=== PATIENT | female | born 1995 | race Caucasian/White ===

== ENCOUNTER 2016-03-08 20:28 | Emergency (ER) | payer OTHER ==
[2016-03-08 20:59] VITALS: TEMP 98.2
[2016-03-08] MEDS ORDERED: PANTOPRAZOLE 40 MG/10 ML VIAL IVP STA (21:45)
[2016-03-08] MEDS ORDERED: SODIUM CHLORIDE 0.9% 1,000 ML IV STA ×2 (21:45)
[2016-03-08] MEDS ORDERED: ONDANSETRON 4 MG/2 ML VIAL IVP STA (21:45)
[2016-03-08] MEDS ORDERED: SODIUM CHLORIDE 0.9% 500 ML IV STA (21:45)
[2016-03-08] MEDS ORDERED: MORPHINE SULFATE 4 MG/ML SYRINGE IV STA (21:45)
[2016-03-08] MEDS ORDERED: DICYCLOMINE 10 MG/ML 2 ML AMP IM STA (21:45)
[2016-03-08 21:55] LABS: Basophils # (A) 0.2 k/uL (0-0.2); Basophils % (A) 1 %; CH 24.7; CHCM 32.8; Eosinophils # (A) 0.1 k/uL (0-0.7); Eosinophils % (A) 1 %; HCT 39.5 % (34.0-46.0); HDW 2.69; HGB 12.7 gm/dL (11.4-16.0); Luc # (Auto) 0.25; Luc % (Auto) 2; Lymphocytes % (A) 21 %; MCH 24.2 pg (25.0-35.0); MCHC 32.1 g/dL (31.0-37.0); MCV 75.4 fL (80.0-100.0); Mean Platelet Volume 7.3; Microcytosis Slight; Monocytes # (A) 0.6 k/uL (0-1.0); Monocytes % (A) 4 %; Neutrophils # (A) 10.5 k/uL (1.3-7.7); Neutrophils % (A) 72 %; RBC 5.23 m/uL (3.80-5.40); RDW 15.1 % (11.5-15.5); WBC 14.7 k/uL (4.0-11.0); WBC (Perox) 14.82
[2016-03-08 21:59] LABS: Amorphous Sediment,Urine Rare /hpf; Appearance,Urine Clear (Clear); Bacteria,Urine Rare /hpf; Bilirubin,Urine Negative (Negative); Glucose,Urine (UA) Negative (Negative); Ketones,Urine Trace (Negative); Leukocyte Esterase,Urine Large (Negative); Mucus,Urine Few /hpf; Nitrite,Urine Negative (Negative); PH, Urine 6.5 (5.0-8.0); Particle Count 7987; Protein,Urine Negative (Negative); RBC,Urine 1 /hpf (0-5); Specific Gravity,Urine 1.022 (1.001-1.035); Squamous Epithelial Cell,Urine 3 /hpf (0-4); UA Billing (MACRO vs. MICRO) MICRO; Urobilinogen,Urine <2.0 mg/dL (<2.0); WBC,Urine 21 /hpf (0-5)
[2016-03-08 22:04] LABS: ALT 28 U/L (9-52); AST 24 U/L (14-36); Alkaline Phosphatase 83 U/L (38-126); Amylase 54 U/L (30-110); Anion Gap 13 mmol/L; Blood Urea Nitrogen 11 mg/dL (7-17); Calcium 9.5 mg/dL (8.4-10.2); Carbon Dioxide 23 mmol/L (22-30); Chloride 104 mmol/L (98-107); Glucose 94 mg/dL (74-99); Non-African American GFR(MDRD) >60 (>60 ml/min/1.73 sqM); Potassium 4.5 mmol/L (3.5-5.1); Sodium 140 mmol/L (137-145); Total Bilirubin 0.6 mg/dL (0.2-1.3); Total Protein 8.1 g/dL (6.3-8.2)
--- NOTE | 2016-03-08 22:11 | XR ---
EXAMINATION TYPE: XR KUB DATE OF EXAM: 03/08/2016 10:05 PM COMPARISON: NONE HISTORY: Abdominal pain TECHNIQUE: 2 views FINDINGS: Bowel gas pattern is normal. There is no sign of intestinal obstruction or pneumoperitoneum . Fecal pattern is normal. There is no sign of a mass. There are no pathologic calcifications over th e kidneys. Bony structures are intact. Lung bases are clear. IMPRESSION: Nonacute abdomen.
--- NOTE | 2016-03-08 22:31 | ED ---
General Adult HPI - General Chief complaint: Abdominal Pain Stated complaint: Poss crohns flare-up Time Seen by Provider: 03/08/16 21:13 Source: patient, RN notes reviewed, old records reviewed Mode of arrival: ambulatory - History of Present Illness Initial comments: This is a 20-year-old female here for evaluation. This patient presents here today for evaluation of abdominal pain nausea and vomiting. She has mild discomfort with urination. No diarrhea no blood in her stool. No blood in her vomit. She has had scrawled, she is on Remicade. Patient states she's had multiple CAT scans with positive for ileitis. Patient states the symptoms all velazquez same. Pain started today and has been consistent. - Related Data Home Medications Medication Instructions Recorded Confirmed Gianvi ( Control) 1 tab PO DAILY 03/08/16 03/08/16 HYDROcodone/APAP 5-325MG [[place] 1 tab PO Q4HR PRN 03/08/16 03/08/16 5-325] Previous Rx's Medication Instructions Recorded HYDROcodone/APAP 5-325MG [[place] 1 tab PO Q4HR PRN #30 tab 03/08/16 5-325] Nitrofurantoin Monohyd/M-Cryst 100 mg PO Q12HR #10 cap 03/08/16 [Macrobid] Ondansetron [Zofran] 4 mg PO Q8HR PRN #30 tab 03/08/16 Allergies Allergy/AdvReac Type Severity Reaction Status Date / Time codeine AdvReac Anaphylaxis Verified 03/08/16 21:51 Penicillins AdvReac Rash/Hives Verified 03/08/16 21:51 Review of Systems ROS Statement: Those systems with pertinent positive or pertinent negative responses have been documented in the HPI. ROS Other: All systems not noted in ROS Statement are negative. Past Medical History Additional Past Medical History / Comment(s): anemia, crohn's History of Any Multi-Drug Resistant Organisms: None Reported Past Surgical History: No Surgical Hx Reported Additional Past Surgical History / Comment(s): crohn's disease Past Psychological History: No Psychological Hx Reported Smoking Status: Never smoker Past Alcohol Use History: None Reported Past Drug Use History: None Reported General Exam General appearance: alert, in no apparent distress Head exam: Present: atraumatic, normocephalic, normal inspection Eye exam: Present: normal appearance, PERRL, EOMI. Absent: scleral icterus, conjunctival injection, periorbital swelling ENT exam: Present: normal exam, mucous membranes moist Neck exam: Present: normal inspection. Absent: tenderness, meningismus, lymphadenopathy Respiratory exam: Present: normal lung sounds bilaterally. Absent: respiratory distress, wheezes, rales, rhonchi, stridor Cardiovascular Exam: Present: regular rate, normal rhythm, normal heart sounds. Absent: systolic murmur, diastolic murmur, rubs, gallop, clicks GI/Abdominal exam: Present: soft, normal bowel sounds. Absent: distended, tenderness, guarding, rebound, rigid Extremities exam: Present: normal inspection, full ROM, normal capillary refill. Absent: tenderness, pedal edema, joint swelling, calf tenderness Back exam: Present: normal inspection Neurological exam: Present: alert, oriented X3, CN II-XII intact Psychiatric exam: Present: normal affect, normal mood Skin exam: Present: warm, dry, intact, normal color. Absent: rash Course Vital Signs 03/08/16 20:56 Temperature 98.2 F Pulse Rate 88 Respiratory 18 Rate Blood Pressure 119/75 O2 Sat by Pulse 98 Oximetry - Reevaluation(s) Reevaluation #1: 03/08/16 22:31 Medical record of prior CAT scans reviewed Reevaluation #2: 03/08/16 23:51 Patient's symptoms at this time are improved Medical Decision Making - Medical Decision Making 20 female here with history of Crohn's disease coming in with urinary tract infection, flareup of Crohn disease with abdominal pain, symptoms this time are improved, we'll start antibiotics and discharged home - Lab Data Result diagrams: 03/08/16 21:40 03/08/16 21:40 Lab Results 03/08/16 03/08/16 03/08/16 Range/Units 21:40 21:40 21:40 WBC 14.7 H (4.0-11.0) k/uL RBC 5.23 (3.80-5.40) m/uL Hgb 12.7 (11.4-16.0) gm/dL Hct 39.5 (34.0-46.0) % MCV 75.4 L (80.0-100.0) fL MCH 24.2 L (25.0-35.0) pg MCHC 32.1 (31.0-37.0) g/dL RDW 15.1 (11.5-15.5) % Plt Count 313 (150-450) k/uL Neutrophils % 72 % Lymphocytes % 21 % Monocytes % 4 % Eosinophils % 1 % Basophils % 1 % Neutrophils # 10.5 H (1.3-7.7) k/uL Lymphocytes # 3.0 (1.0-4.8) k/uL Monocytes # 0.6 (0-1.0) k/uL Eosinophils # 0.1 (0-0.7) k/uL Basophils # 0.2 (0-0.2) k/uL Microcytosis Slight Sodium 140 (137-145) mmol/L Potassium 4.5 (3.5-5.1) mmol/L Chloride 104 (98-107) mmol/L Carbon Dioxide 23 (22-30) mmol/L Anion Gap 13 mmol/L BUN 11 (7-17) mg/dL Creatinine 0.61 (0.52-1.04) mg/dL Est GFR (MDRD) Af Amer >60 (>60 ml/min/1.73 sqM) Est GFR (MDRD) Non-Af >60 (>60 ml/min/1.73 sqM) Glucose 94 (74-99) mg/dL Plasma Lactic Acid Jamshid (0.7-2.0) mmol/L Calcium 9.5 (8.4-10.2) mg/dL Total Bilirubin 0.6 (0.2-1.3) mg/dL AST 24 (14-36) U/L ALT 28 (9-52) U/L Alkaline Phosphatase 83 (38-126) U/L Total Protein 8.1 (6.3-8.2) g/dL Albumin 4.4 (3.5-5.0) g/dL Amylase 54 (30-110) U/L Lipase 116 (23-300) U/L Urine Color Yellow Urine Appearance Clear (Clear) Urine pH 6.5 (5.0-8.0) Ur Specific [place] 1.022 (1.001-1.035) Urine Protein Negative (Negative) Urine Glucose (UA) Negative (Negative) Urine Ketones Trace H (Negative) Urine Blood Negative (Negative) Urine Nitrate Negative (Negative) Urine Bilirubin Negative (Negative) Urine Urobilinogen <2.0 (<2.0) mg/dL Ur Leukocyte Esterase Large H (Negative) Urine RBC 1 (0-5) /hpf Urine WBC 21 H (0-5) /hpf Ur Squamous Epith Cells 3 (0-4) /hpf Amorphous Sediment Rare H (None) /hpf Urine Bacteria Rare H (None) /hpf Urine Mucus Few H (None) /hpf Urine HCG, Qual (Not Detectd) 03/08/16 03/08/16 Range/Units 21:40 21:40 WBC (4.0-11.0) k/uL RBC (3.80-5.40) m/uL Hgb (11.4-16.0) gm/dL Hct (34.0-46.0) % MCV (80.0-100.0) fL MCH (25.0-35.0) pg MCHC (31.0-37.0) g/dL RDW (11.5-15.5) % Plt Count (150-450) k/uL Neutrophils % % Lymphocytes % % Monocytes % % Eosinophils % % Basophils % % Neutrophils # (1.3-7.7) k/uL Lymphocytes # (1.0-4.8) k/uL Monocytes # (0-1.0) k/uL Eosinophils # (0-0.7) k/uL Basophils # (0-0.2) k/uL Microcytosis Sodium (137-145) mmol/L Potassium (3.5-5.1) mmol/L Chloride (98-107) mmol/L Carbon Dioxide (22-30) mmol/L Anion Gap mmol/L BUN (7-17) mg/dL Creatinine (0.52-1.04) mg/dL Est GFR (MDRD) Af Amer (>60 ml/min/1.73 sqM) Est GFR (MDRD) Non-Af (>60 ml/min/1.73 sqM) Glucose (74-99) mg/dL Plasma Lactic Acid Jamshid 0.7 (0.7-2.0) mmol/L Calcium (8.4-10.2) mg/dL Total Bilirubin (0.2-1.3) mg/dL AST (14-36) U/L ALT (9-52) U/L Alkaline Phosphatase (38-126) U/L Total Protein (6.3-8.2) g/dL Albumin (3.5-5.0) g/dL Amylase (30-110) U/L Lipase (23-300) U/L Urine Color Urine Appearance (Clear) Urine pH (5.0-8.0) Ur Specific [place] (1.001-1.035) Urine Protein (Negative) Urine Glucose (UA) (Negative) Urine Ketones (Negative) Urine Blood (Negative) Urine Nitrate (Negative) Urine Bilirubin (Negative) Urine Urobilinogen (<2.0) mg/dL Ur Leukocyte Esterase (Negative) Urine RBC (0-5) /hpf Urine WBC (0-5) /hpf Ur Squamous Epith Cells (0-4) /hpf Amorphous Sediment (None) /hpf Urine Bacteria (None) /hpf Urine Mucus (None) /hpf Urine HCG, Qual Not Detected (Not Detectd) - Radiology Data Radiology results: report reviewed (X-ray of the ulcer is negative for acute disease), image reviewed Disposition Clinical Impression: Abdominal pain, Crohns disease, UTI (urinary tract infection) Disposition: HOME SELF-CARE Condition: Good Instructions: Crohn Disease (ED), Urinary Tract Infection in Women (ED) Prescriptions: HYDROcodone/APAP 5-325MG [[place] 5-325] 1 tab PO Q4HR PRN #30 tab PRN Reason: Pain Nitrofurantoin Monohyd/M-Cryst [Macrobid] 100 mg PO Q12HR #10 cap Ondansetron [Zofran] 4 mg PO Q8HR PRN #30 tab PRN Reason: Nausea Referrals: Vasiliy Hodge DO [Primary Care Provider] - 1-2 days
[2016-03-08] MEDS ORDERED: NITROFURANTOIN MONOHYD/M-CRYST 100 MG CAP PO STA (23:49)
[2016-03-09 00:55] VITALS: BP 128/70; PULSE 70; RESP 14
== END 2016-03-09 00:54 | disposition home or self-care (01) ==
LOC: EC 20:28
DX: N39.0 Urinary tract infection, site not specified (principal); K50.90 Crohn's disease, unspecified, without complications; Z88.0 Allergy status to penicillin; Z88.5 Allergy status to narcotic agent; Z79.3 Long term (current) use of hormonal contraceptives
CPT/HCPCS: 99284; 96375; 96374; 96372; 96361 ×2; 36415; 80053; 82150; 83605; 83690; 85025; 81001; 81025; 87086; 74000; J0500; J2405; J0696; C9113

== ENCOUNTER → 2018-03-31 | Outpatient (CLI) | payer BC ==
--- NOTE | 2018-04-01 04:37 | MR ---
EXAMINATION TYPE: MR angio head wo/w con DATE OF EXAM: 03/31/2018 COMPARISON: None HISTORY: migraines,visual distrubance,fatigue, TECHNIQUE: Time of flight images focusing on the [place] of [place] were performed utilizing 5 mL intra venous Gadavist gadolinium contrast. FINDINGS: There is arterial flow in the vertebrobasilar artery system. There is arterial flow in the anterior middle and posterior cerebral arteries. There is a diminutive proximal left anterior cerebra l artery. The distal left anterior cerebral arteries appear to fill mostly from the right side throug h the intercommunicating artery. The left posterior cerebral artery appears to fill mostly through th e left posterior communicating artery. I see no evidence of hemodynamic stenosis. There is no mass effect. There is no evidence of neovascul arity. I see no aneurysm. IMPRESSION: Negative MR angiogram of the brain. 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
--- NOTE | 2018-04-01 05:36 | MR ---
MR scan of the brain. History migraine. Visual disturbance. Comparison none. TECHNIQUE: Multiplanar multiecho imaging of the brain was performed without contrast. FINDINGS: The ventricles and sulci appear normal. There is no mass effect nor midline shift. There is no sign o f intracranial hemorrhage. Brainstem appears normal. Corpus callosum appears normal. Sella turcica ap pears normal. There is no evidence of cerebral edema. Howard-white matter structures have normal signal pattern. There is no evidence of cortical infarct. There are 2 tiny foci of increased signal in the subcortical left occipital lobe and right posterior temporal lobe white matter that measure 2 to 3 mm of doubtful significance. IMPRESSION: Negative MR scan of the brain.
== END | disposition home or self-care (01) ==
LOC: RADMRIMAIN 11:50
PROVIDERS: ATTEND Internal Medicine
DX: R51 Headache (principal); H53.8 Other visual disturbances; G47.00 Insomnia, unspecified
CPT/HCPCS: 70546; 70551; A9585

== ENCOUNTER 2020-12-11 12:28 | Emergency (ER) | payer BC ==
[2020-12-11 13:22] VITALS: BP 133/87; PULSE 92; RESP 18; TEMP 98.1
--- NOTE | 2020-12-11 13:39 | ED ---
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 Patient was picked up by police on-call or picked up. Patient states she is unsure what is going on at this time she has no psychological diagnosis for history. Patient does state that she is going through a divorce that she asked for. She states that her family is concerned and states that her family is warned rested in her marriage and worried about her. Patient has been suicidal homicidal denies drug or alcohol abuse. - Related Data Home Medications Medication Instructions Recorded Confirmed Dextroamphetamine/Amphetamine 25 mg PO DAILY 12/11/20 12/11/20 [Adderall Xr] Methylphenidate HCl [Ritalin] 15 mg PO DAILY@1430 12/11/20 12/11/20 Sertraline [Zoloft] 150 mg PO DAILY 12/11/20 12/11/20 Allergies Allergy/AdvReac Type Severity Reaction Status Date / Time codeine Allergy Anaphylaxis Verified 12/11/20 14:17 Penicillins Allergy Rash/Hives Verified 12/11/20 14:17 Review of Systems ROS Statement: Those systems with pertinent positive or pertinent negative responses have been documented in the HPI. ROS Other: All systems not noted in ROS Statement are negative. Past Medical History Additional Past Medical History / Comment(s): anemia, crohn's History of Any Multi-Drug Resistant Organisms: None Reported Past Surgical History: No Surgical Hx Reported Additional Past Surgical History / Comment(s): crohn's disease Past Psychological History: No Psychological Hx Reported Smoking Status: Current some day smoker Past Alcohol Use History: None Reported Past Drug Use History: None Reported General Exam Limitations: no limitations General appearance: alert, in no apparent distress Head exam: Present: atraumatic, normocephalic, normal inspection Eye exam: Present: normal appearance, PERRL, EOMI. Absent: scleral icterus, conjunctival injection, periorbital swelling ENT exam: Present: normal exam, normal oropharynx, mucous membranes moist Neck exam: Present: normal inspection, full ROM. Absent: tenderness, meningismus, lymphadenopathy Respiratory exam: Present: normal lung sounds bilaterally. Absent: respiratory distress, wheezes, rales, rhonchi, stridor Cardiovascular Exam: Present: regular rate, normal rhythm, normal heart sounds. Absent: systolic murmur, diastolic murmur, rubs, gallop, clicks Course Vital Signs 12/11/20 13:14 Temperature 98.1 F Pulse Rate 92 Respiratory 18 Rate Blood Pressure 133/87 O2 Sat by Pulse 100 Oximetry Medical Decision Making - Medical Decision Making Patient evaluated by EPS and case discussed with psychiatrist patient discharged stable condition Disposition Clinical Impression: Adjustment reaction of adult life Disposition: HOME SELF-CARE Condition: Stable Additional Instructions: Please return to the Emergency Department if symptoms worsen or any other concerns. Is patient prescribed a controlled substance at d/c from ED?: No Referrals: None,Stated [REFERRING] - 1-2 days Time of Disposition: 16:41
== END 2020-12-11 16:56 | disposition home or self-care (01) ==
LOC: EC 12:28
DX: F43.20 Adjustment disorder, unspecified (principal); F17.200 Nicotine dependence, unspecified, uncomplicated; Z63.5 Disruption of family by separation and divorce; Z88.0 Allergy status to penicillin; Z88.5 Allergy status to narcotic agent
CPT/HCPCS: 82075; 99284

== ENCOUNTER 2020-12-12 06:02 | Inpatient (IN) | payer BC ==
--- NOTE | 2020-12-12 06:35 | ED ---
General Adult HPI - General Chief complaint: Overdose Stated complaint: Mental Health Time Seen by Provider: 12/12/20 06:15 Source: patient, family Mode of arrival: ambulatory - History of Present Illness Initial comments: 25-year-old female presents to the emergency room for a chief complaint of overdose. Patient tried to kill her self last night. About 7 hours ago she took 30 25 mg XR Adderall and 20 100 mg sertraline. Patient states he did this because her life is very complicated and "like a movie." Patient states that she was also drinking. Her friends found her swimming in a pond and brought her into the emergency room. Patient is petitioned. Patient's complaint today is nausea.Patient has no other complaints at this time including shortness of breath, chest pain, abdominal pain, headache, or visual changes. - Related Data Home Medications Medication Instructions Recorded Confirmed Dextroamphetamine/Amphetamine 25 mg PO DAILY 12/11/20 12/12/20 [Adderall Xr] Methylphenidate HCl [Ritalin] 15 mg PO DAILY@1430 12/11/20 12/12/20 Sertraline [Zoloft] 150 mg PO DAILY 12/11/20 12/12/20 Allergies Allergy/AdvReac Type Severity Reaction Status Date / Time codeine Allergy Anaphylaxis Verified 12/12/20 06:10 Penicillins Allergy Rash/Hives Verified 12/12/20 06:10 Review of Systems ROS Statement: Those systems with pertinent positive or pertinent negative responses have been documented in the HPI. ROS Other: All systems not noted in ROS Statement are negative. Past Medical History Additional Past Medical History / Comment(s): anemia, crohn's History of Any Multi-Drug Resistant Organisms: None Reported Past Surgical History: No Surgical Hx Reported Additional Past Surgical History / Comment(s): crohn's disease Past Psychological History: Anxiety, Depression Smoking Status: Current some day smoker Past Alcohol Use History: Daily Past Drug Use History: None Reported General Exam General appearance: alert, in no apparent distress Head exam: Present: atraumatic Eye exam: Present: normal appearance, PERRL, EOMI. Absent: scleral icterus, conjunctival injection ENT exam: Present: normal exam, mucous membranes moist Neck exam: Present: normal inspection, full ROM. Absent: tenderness Respiratory exam: Present: normal lung sounds bilaterally. Absent: respiratory distress, wheezes Cardiovascular Exam: Present: regular rate, normal rhythm, normal heart sounds GI/Abdominal exam: Present: soft, normal bowel sounds. Absent: distended, tenderness Psychiatric exam: Present: suicidal ideation. Absent: homicidal ideation Course Vital Signs 12/12/20 12/12/20 12/12/20 06:05 07:25 08:39 Temperature 97.2 F L 98.0 F Pulse Rate 139 H 144 H 140 H Respiratory 18 20 18 Rate Blood Pressure 157/89 142/101 148/89 O2 Sat by Pulse 100 100 94 L Oximetry - Reevaluation(s) Reevaluation #1: 12/12/20 08:39 Parviz spoke with poison control, recommending repeat EKG in 6 hours before medically cleared EKG Findings - EKG Comments: EKG Findings:: Sinus tachycardia, ventricular rate 138, QTc 463, QRS duration 80. 1438: Sinus tachycardia, ventricular rate 120, ME interval 126, QTc 469 Medical Decision Making - Medical Decision Making Patient presents tachycardic after a intentional drug ingestion and overdose. Patient suicidal. Laboratory evaluation was initiated and poison control was contacted. Initial EKG did show tachycardia. They recommended a repeat EKG in 6 hours and monitoring until that time. This was performed. EKG was repeated at 1438. This did show some improvement in tachycardia with a ventricular rate of 120 however patient shortly return to the 140s. Poison control was contacted again. They did recommend a medical admission with psychiatry consultation. They will check back in a few hours on patient. - Lab Data Result diagrams: 12/12/20 06:53 12/12/20 06:53 Lab Results 12/12/20 12/12/20 12/12/20 Range/Units 06:53 06:53 06:53 WBC 17.4 H (3.8-10.6) k/uL RBC 4.26 (3.80-5.40) m/uL Hgb 12.6 (11.4-16.0) gm/dL Hct 37.5 (34.0-46.0) % MCV 88.0 (80.0-100.0) fL MCH 29.7 (25.0-35.0) pg MCHC 33.7 (31.0-37.0) g/dL RDW 13.7 (11.5-15.5) % Plt Count 335 (150-450) k/uL MPV 7.5 Neutrophils % 80 % Lymphocytes % 14 % Monocytes % 5 % Eosinophils % 0 % Basophils % 0 % Neutrophils # 13.9 H (1.3-7.7) k/uL Lymphocytes # 2.4 (1.0-4.8) k/uL Monocytes # 0.9 (0-1.0) k/uL Eosinophils # 0.0 (0-0.7) k/uL Basophils # 0.0 (0-0.2) k/uL Sodium (137-145) mmol/L Potassium (3.5-5.1) mmol/L Chloride (98-107) mmol/L Carbon Dioxide (22-30) mmol/L Anion Gap mmol/L BUN (7-17) mg/dL Creatinine (0.52-1.04) mg/dL Est GFR (CKD-EPI)AfAm (>60 ml/min/1.73 sqM) Est GFR (CKD-EPI)NonAf (>60 ml/min/1.73 sqM) Glucose (74-99) mg/dL Calcium (8.4-10.2) mg/dL Magnesium (1.6-2.3) mg/dL Total Bilirubin (0.2-1.3) mg/dL AST (14-36) U/L ALT (4-34) U/L Alkaline Phosphatase (38-126) U/L Total Protein (6.3-8.2) g/dL Albumin (3.5-5.0) g/dL Urine Color Yellow Urine Appearance Cloudy H (Clear) Urine pH 6.0 (5.0-8.0) Ur Specific [place] 1.019 (1.001-1.035) Urine Protein Trace H (Negative) Urine Glucose (UA) Negative (Negative) Urine Ketones Negative (Negative) Urine Blood Small H (Negative) Urine Nitrite Positive H (Negative) Urine Bilirubin Negative (Negative) Urine Urobilinogen <2.0 (<2.0) mg/dL Ur Leukocyte Esterase Large H (Negative) Urine RBC 5 (0-5) /hpf Urine WBC 20 H (0-5) /hpf Ur Squamous Epith Cells 34 H (0-4) /hpf Urine Bacteria Moderate H (None) /hpf Hyaline Casts 7 H (0-2) /lpf Urine Mucus Occasional H (None) /hpf Urine HCG, Qual Not Detected (Not Detectd) Salicylates mg/dL Urine Opiates Screen Not Detected (NotDetected) Ur Oxycodone Screen Not Detected (NotDetected) Urine Methadone Screen Not Detected (NotDetected) Ur Propoxyphene Screen Not Detected (NotDetected) Acetaminophen ug/mL Ur Barbiturates Screen Not Detected (NotDetected) U Tricyclic Antidepress Not Detected (NotDetected) Ur Phencyclidine Scrn Not Detected (NotDetected) Ur Amphetamines Screen Detected H (NotDetected) U Methamphetamines Scrn Not Detected (NotDetected) U Benzodiazepines Scrn Not Detected (NotDetected) Urine Cocaine Screen Not Detected (NotDetected) U Marijuana (THC) Screen Not Detected (NotDetected) Serum Alcohol mg/dL 12/12/20 12/12/20 Range/Units 06:53 06:53 WBC (3.8-10.6) k/uL RBC (3.80-5.40) m/uL Hgb (11.4-16.0) gm/dL Hct (34.0-46.0) % MCV (80.0-100.0) fL MCH (25.0-35.0) pg MCHC (31.0-37.0) g/dL RDW (11.5-15.5) % Plt Count (150-450) k/uL MPV Neutrophils % % Lymphocytes % % Monocytes % % Eosinophils % % Basophils % % Neutrophils # (1.3-7.7) k/uL Lymphocytes # (1.0-4.8) k/uL Monocytes # (0-1.0) k/uL Eosinophils # (0-0.7) k/uL Basophils # (0-0.2) k/uL Sodium 140 (137-145) mmol/L Potassium 3.9 (3.5-5.1) mmol/L Chloride 106 (98-107) mmol/L Carbon Dioxide 24 (22-30) mmol/L Anion Gap 10 mmol/L BUN 15 (7-17) mg/dL Creatinine 0.51 L (0.52-1.04) mg/dL Est GFR (CKD-EPI)AfAm >90 (>60 ml/min/1.73 sqM) Est GFR (CKD-EPI)NonAf >90 (>60 ml/min/1.73 sqM) Glucose 91 (74-99) mg/dL Calcium 9.4 (8.4-10.2) mg/dL Magnesium 2.0 (1.6-2.3) mg/dL Total Bilirubin 0.2 (0.2-1.3) mg/dL AST 25 (14-36) U/L ALT 13 (4-34) U/L Alkaline Phosphatase 74 (38-126) U/L Total Protein 7.8 (6.3-8.2) g/dL Albumin 4.2 (3.5-5.0) g/dL Urine Color Urine Appearance (Clear) Urine pH (5.0-8.0) Ur Specific [place] (1.001-1.035) Urine Protein (Negative) Urine Glucose (UA) (Negative) Urine Ketones (Negative) Urine Blood (Negative) Urine Nitrite (Negative) Urine Bilirubin (Negative) Urine Urobilinogen (<2.0) mg/dL Ur Leukocyte Esterase (Negative) Urine RBC (0-5) /hpf Urine WBC (0-5) /hpf Ur Squamous Epith Cells (0-4) /hpf Urine Bacteria (None) /hpf Hyaline Casts (0-2) /lpf Urine Mucus (None) /hpf Urine HCG, Qual (Not Detectd) Salicylates <1.0 mg/dL Urine Opiates Screen (NotDetected) Ur Oxycodone Screen (NotDetected) Urine Methadone Screen (NotDetected) Ur Propoxyphene Screen (NotDetected) Acetaminophen <10.0 ug/mL Ur Barbiturates Screen (NotDetected) U Tricyclic Antidepress (NotDetected) Ur Phencyclidine Scrn (NotDetected) Ur Amphetamines Screen (NotDetected) U Methamphetamines Scrn (NotDetected) U Benzodiazepines Scrn (NotDetected) Urine Cocaine Screen (NotDetected) U Marijuana (THC) Screen (NotDetected) Serum Alcohol <10 mg/dL Disposition Clinical Impression: Suicide attempt by multiple drug overdose, Tachycardia Disposition: ADMITTED IP TO THIS [facility] Is patient prescribed a controlled substance at d/c from ED?: No Referrals: Vasiliy Hodge DO [Primary Care Provider] - 1-2 days Time of Disposition: 16:44
[2020-12-12 07:27] LABS: Basophils % (A) 0 %; Eosinophils % (A) 0 %; HCT 37.5 % (34.0-46.0); HGB 12.6 gm/dL (11.4-16.0); Lymphocytes # (A) 2.4 k/uL (1.0-4.8); Lymphocytes % (A) 14 %; MCH 29.7 pg (25.0-35.0); MCHC 33.7 g/dL (31.0-37.0); Mean Platelet Volume 7.5; Monocytes # (A) 0.9 k/uL (0-1.0); Monocytes % (A) 5 %; Neutrophils # (A) 13.9 k/uL (1.3-7.7); Neutrophils % (A) 80 %; Platelet Count 335 k/uL (150-450); RBC 4.26 m/uL (3.80-5.40); RDW 13.7 % (11.5-15.5); WBC 17.4 k/uL (3.8-10.6)
[2020-12-12 07:38] LABS: ALT 13 U/L (4-34); AST 25 U/L (14-36); Acetaminophen <10.0 ug/mL; African American GFR (CKD) >90 (>60 ml/min/1.73 sqM); Albumin 4.2 g/dL (3.5-5.0); Alcohol <10 mg/dL; Alkaline Phosphatase 74 U/L (38-126); Anion Gap 10 mmol/L; Blood Urea Nitrogen 15 mg/dL (7-17); Calcium 9.4 mg/dL (8.4-10.2); Carbon Dioxide 24 mmol/L (22-30); Chloride 106 mmol/L (98-107); Glucose 91 mg/dL (74-99); Non-African American GFR(CKD) >90 (>60 ml/min/1.73 sqM); Potassium 3.9 mmol/L (3.5-5.1); Salicylate <1.0 mg/dL; Sodium 140 mmol/L (137-145); Total Bilirubin 0.2 mg/dL (0.2-1.3); Total Protein 7.8 g/dL (6.3-8.2)
[2020-12-12 07:39] LABS: Appearance,Urine Cloudy (Clear); Bacteria,Urine Moderate /hpf; Bilirubin,Urine Negative (Negative); Blood,Urine Small (Negative); Color,Urine Yellow; Glucose,Urine (UA) Negative (Negative); Hyaline Casts,Urine 7 /lpf (0-2); Ketones,Urine Negative (Negative); Leukocyte Esterase,Urine Large (Negative); Mucus,Urine Occasional /hpf; Nitrite,Urine Positive (Negative); Protein,Urine Trace (Negative); RBC,Urine 5 /hpf (0-5); Specific Gravity,Urine 1.019 (1.001-1.035); Squamous Epithelial Cell,Urine 34 /hpf (0-4); Urobilinogen,Urine <2.0 mg/dL (<2.0); WBC,Urine 20 /hpf (0-5)
[2020-12-12 07:57] LABS: Amphetamine Screen,Urine Detected (NotDetected); Barbiturate Screen,Urine Not Detected (NotDetected); Benzodiazepines Screen,Urine Not Detected (NotDetected); Cocaine Screen,Urine Not Detected (NotDetected); Methadone Screen, Urine Not Detected (NotDetected); Opiate Screen,Urine Not Detected (NotDetected); Oxycodone Screen, Urine Not Detected (NotDetected); Phencyclidine Screen,Urine Not Detected (NotDetected); Tricyclic Antidepressant,Urine Not Detected (NotDetected); Urn Cannabinoid Scrn Not Detected (NotDetected)
[2020-12-12] MEDS ORDERED: SODIUM CHLORIDE 0.9% 1,000 ML IV STA (08:00)
[2020-12-12] MEDS ORDERED: LORazepam 2 MG/ML INJ IV STA ×2 (08:00→16:42)
[2020-12-12] MEDS ORDERED: NALOXONE 0.4 MG/ML 1 ML VIAL IV PRN (16:40)
[2020-12-12] MEDS: SODIUM CHLORIDE 0.9% 1,000 ML IV SCH (19:35)
--- NOTE | 2020-12-12 21:46 | P.HPIM ---
History of Present Illness H&P Date: 12/12/20 The patient is a 25-year-old female with a PMH of anxiety, depression, tobacco abuse, who presented to the emergency room after an intentional overdose where she took 30 tablets of 25 mg Adderall and 20 tablets of 100 mg sertraline. The patient was distraught after being told that she will need to stay in the hospital and and be evaluated by psychiatry. The patient subsequently refused to answer any further questions and also refused examination. As per them emergency room documentation, the patient was brought into the emergency room after she was found sitting and upon and had stated that her life was complicated which had led to her suicide attempt. The patient however had had denied any active complaints. EKGs in the emergency room and revealed sinus a cardiac 120 bpm and repeat EKG revealed sinus a cardiac 138 bpm. Poison control was notified and advised to continue monitoring with no intervention required at this time. Laboratory evaluation was remarkable for leukocytosis of 17.4, abnormal UA, and urine tox cardiology positive for amphetamines. Review of systems: Patient refused answer questions Physical examination: General: non toxic, no distress, appears at stated age, thin Derm: no unusual rashes/lesions no unusual ecchymoses Head: atraumatic, normocephalic, symmetric Eyes: EOMI, no lid lag, anicteric sclera, refused examination ENT: Nose and ears atraumatic, refused examination Neck: Refused examination Mouth: no obvious lip lesion, refused examination Cardiovascular: Refused Lungs: Refused Abdominal: Refused Ext: no obvious gross muscle atrophy, moving all extremities, no obvious contractures Neuro: Refused Psych: Alert, oriented, guarded affect Assessment/plan Intentional overdose -Continue with cardiac monitoring -Poison control recommendations -IV fluids -Psychiatry consulted -Suicide and elopement precautions DVT prophylaxis -IPCD The patient is admitted with an anticipated greater than 2 midnight stay for evaluation of intentional overdose CODE STATUS:Full Code Discussed with: Patient Anticipated discharge date: 2-[address]: Home Past Medical History Additional Past Medical History / Comment(s): anemia, crohn's History of Any Multi-Drug Resistant Organisms: None Reported Past Surgical History: No Surgical Hx Reported Additional Past Surgical History / Comment(s): crohn's disease Past Psychological History: Anxiety, Depression Smoking Status: Current some day smoker Past Alcohol Use History: Daily Past Drug Use History: None Reported - Past Family History Father Family Medical History: Unable to Obtain (Patient refused to answer questions) Medications and Allergies Home Medications Medication Instructions Recorded Confirmed Type Dextroamphetamine/Amphetamine 25 mg PO DAILY 12/11/20 12/12/20 History [Adderall Xr] Methylphenidate HCl [Ritalin] 15 mg PO DAILY@1430 12/11/20 12/12/20 History Sertraline [Zoloft] 150 mg PO DAILY 12/11/20 12/12/20 History Allergies Allergy/AdvReac Type Severity Reaction Status Date / Time codeine Allergy Anaphylaxis Verified 12/12/20 06:10 Penicillins Allergy Rash/Hives Verified 12/12/20 06:10 Physical Exam Vitals: Vital Signs Temp Pulse Resp BP Pulse Ox 12/12/20 17:00 126 H 18 134/62 94 L 12/12/20 08:39 140 H 18 148/89 94 L 12/12/20 07:25 98.0 F 144 H 20 142/101 100 12/12/20 06:05 97.2 F L 139 H 18 157/89 100 Intake and Output 12/12/20 12/12/20 12/12/20 06:59 14:59 22:59 Other: Weight 45.359 kg Results CBC & Chem 7: 12/12/20 06:53 12/12/20 06:53 Labs: Abnormal Lab Results - Last 24 Hours (Table) 12/12/20 12/12/20 12/12/20 Range/Units 06:53 06:53 06:53 WBC 17.4 H (3.8-10.6) k/uL Neutrophils # 13.9 H (1.3-7.7) k/uL Creatinine 0.51 L (0.52-1.04) mg/dL Urine Appearance Cloudy H (Clear) Urine Protein Trace H (Negative) Urine Blood Small H (Negative) Urine Nitrite Positive H (Negative) Ur Leukocyte Esterase Large H (Negative) Urine WBC 20 H (0-5) /hpf Ur Squamous Epith Cells 34 H (0-4) /hpf Urine Bacteria Moderate H (None) /hpf Hyaline Casts 7 H (0-2) /lpf Urine Mucus Occasional H (None) /hpf Ur Amphetamines Screen Detected H (NotDetected) Microbiology - Last 24 Hours (Table) 12/12/20 06:53 Urine Culture - Preliminary Urine,Voided
[2020-12-13] MEDS: SODIUM CHLORIDE 0.9% 1,000 ML IV SCH ×3 (01:55→16:56)
[2020-12-13 09:57] LABS: HCT 35.4 % (34.0-46.0); HGB 11.8 gm/dL (11.4-16.0); MCH 29.5 pg (25.0-35.0); MCHC 33.4 g/dL (31.0-37.0); MCV 88.3 fL (80.0-100.0); Mean Platelet Volume 7.8; Platelet Count 321 k/uL (150-450); RBC 4.01 m/uL (3.80-5.40); WBC 7.9 k/uL (3.8-10.6)
[2020-12-13 10:16] LABS: African American GFR (CKD) >90 (>60 ml/min/1.73 sqM); Anion Gap 6 mmol/L; Blood Urea Nitrogen 5 mg/dL (7-17); Calcium 8.5 mg/dL (8.4-10.2); Carbon Dioxide 24 mmol/L (22-30); Chloride 108 mmol/L (98-107); Glucose 101 mg/dL (74-99); Magnesium 1.8 mg/dL (1.6-2.3); Non-African American GFR(CKD) >90 (>60 ml/min/1.73 sqM); Potassium 3.9 mmol/L (3.5-5.1); Sodium 138 mmol/L (137-145)
--- NOTE | 2020-12-13 13:01 | P.PN ---
Subjective Progress Note Date: 12/13/20 Hospital course: The patient is a 25-year-old female with a past medical history of anxiety, depression, and tobacco abuse. She presented to the emergency department on 12/12/20 after an intentional overdose. Patient reportedly took 30 tablets of 25 mg Adderall and 20 tablets of 100 mg sertraline's. Patient reports that she took these medications because, "I was trying to kill myself." Patient states that "if I told you how best of my life was right now, you would understand." In the emergency department, an EKG was completed revealing sinus tachycardia at 138 bpm with slightly prolonged QTC of 463 ms. Poison control was notified and advised to continue telemetry monitoring with no further interventions at that time. Laboratory evaluation was remarkable for leukocytosis of 17.4, abnormal UA due to contaminated specimen, and urine tox cardiology positive for amphetamines. Patient was petitioned, placed under suicidal precautions and admitted under our services with consultation to psychiatry. Physical examination: Patient seen and fully evaluated at the bedside this morning. Patient is very adamant that she is going home and will be spending Halloween with her children. Patient informed that she is under petition due to her suicidal attempt and will need to be evaluated by psychiatry. Patient states that she has already talked to her friends and they have discussed a new plan for managing anxiety and stress. Patient denies previous hospitalizations for psychiatric issues and denies previous suicidal attempts. Patient was informed again that she would have to still wait for psychiatry to evaluate as she will likely need inpatient hospitalization. Patient then became very agitated and appeared angry stated she wants to be alone and would not allow further examination or questions. General: non toxic, no distress, appears at stated age, thin Derm: no unusual rashes/lesions no unusual ecchymoses Head: atraumatic, normocephalic, symmetric Eyes: no lid lag, anicteric sclera Neck: Supple full ROS. Mouth: no obvious lip lesion, mucous membranes moist Cardiovascular: S1-S2 normal with regular rate and rhythm. Lungs: Respirations even, regular, and unlabored on room air lungs clear to auscultation bilaterally. Abdominal: Soft, nondistended, nontender upon palpation. Ext: no obvious gross muscle atrophy, moving all extremities, no obvious contractures, and no edema Neuro: GCS 15. Psych: Alert, oriented, guarded affect Assessment and plan of care: Intentional overdose Suicidal attempt via ingestion Anxiety Depression -Continue with telemetry monitoring -Poison control recommendations -Repeat EKG to ensure no further QTC prolongation. -IV fluids -Psychiatry consulted -Continuation of strict Suicide and elopement precautions CODE STATUS:Full Code Discussed with: Patient and RN Anticipated discharge date: 1-[address]: Inpatient psychiatric unit Objective - Vital Signs Vital signs: Vital Signs Temp 98.5 F 12/13/20 06:11 Pulse 90 12/13/20 06:11 Resp 15 12/13/20 06:11 BP 115/72 12/13/20 06:11 Pulse Ox 99 12/13/20 06:11 Intake & Output 12/12/20 12/13/20 12/13/20 18:59 06:59 18:59 Intake Total 1370 Balance 1370 Weight 45.359 kg Intake: Intake, IV Titration 1040 Amount Sodium Chloride 0.9% 1, 1040 000 ml @ 130 mls/hr IV . [id number] [facility] Rx#:[id number] Oral 330 - Labs CBC & Chem 7: 12/13/20 09:47 12/13/20 09:47 Labs: Abnormal Lab Results - Last 24 Hours (Table) 12/12/20 Range/Units 06:53 Urine Appearance Cloudy H (Clear) Urine Protein Trace H (Negative) Urine Blood Small H (Negative) Urine Nitrite Positive H (Negative) Ur Leukocyte Esterase Large H (Negative) Urine WBC 20 H (0-5) /hpf Ur Squamous Epith Cells 34 H (0-4) /hpf Urine Bacteria Moderate H (None) /hpf Hyaline Casts 7 H (0-2) /lpf Urine Mucus Occasional H (None) /hpf Ur Amphetamines Screen Detected H (NotDetected) Microbiology - Last 24 Hours (Table) 12/12/20 06:53 Urine Culture - Preliminary Urine,Voided
--- NOTE | 2020-12-13 13:22 | P.DS ---
Providers Date of admission: 12/12/20 16:59 Expected date of discharge: 12/13/20 Attending physician: Andria Kiser MD Consults: 12/12/20 16:40 Consult Physician Routine Consulting Provider: Prabhjot Bowser Consult Reason/Comments: suicide attempt Do you want consulting provider notified?: Yes Primary care physician: Vasiliy Hodge Hospital Course: Discharge Diagnosis: Intentional overdose Suicidal attempt via ingestion Anxiety Depression Hospital Course: The patient is a 25-year-old female with a past medical history of anxiety, depression, and tobacco abuse. She presented to the emergency department on 12/12/20 after an intentional overdose. Patient reportedly took 30 tablets of 25 mg Adderall and 20 tablets of 100 mg sertraline's. Patient reports that she took these medications because, "I was trying to kill myself." Patient states that "if I told you how best of my life was right now, you would understand." In the emergency department, an EKG was completed revealing sinus tachycardia at 138 bpm with slightly prolonged QTC of 463 ms. Poison control was notified and advised to continue telemetry monitoring with no further interventions at that time. Laboratory evaluation was remarkable for leukocytosis of 17.4, abnormal UA due to contaminated specimen, and urine tox cardiology positive for amphetamines. Patient was petitioned, placed under suicidal precautions and admitted under our services with consultation to psychiatry. Patient was seen and fully evaluated by psychiatry as recommending transferring to inpatient psychiatric care. Repeat EKG showing normal sinus rhythm with improvement of QTC. Poison control recommending no further monitoring at this time stating patient may be discharged. Patient is medically stable for transfer to inpatient psychiatric facility at this time. A total of 45 minutes of time were spent preparing this complex discharge summary. Patient Condition at Discharge: Stable Plan - Discharge Summary Discharge Rx Participant: No New Discharge Prescriptions: No Action Methylphenidate HCl [Ritalin] 15 mg PO DAILY@1430 Sertraline [Zoloft] 150 mg PO DAILY Dextroamphetamine/Amphetamine [Adderall Xr] 25 mg PO DAILY Discharge Medication List Dextroamphetamine/Amphetamine [Adderall Xr] 25 mg PO DAILY 12/11/20 [History] Methylphenidate HCl [Ritalin] 15 mg PO DAILY@1430 12/11/20 [History] Sertraline [Zoloft] 150 mg PO DAILY 10/29/21 [History] Follow up Appointment(s)/Referral(s): Vasiliy Hodge DO [Primary Care Provider] - 1-2 days Activity/Diet/Wound Care/Special Instructions: personal belongings locked up in unit lockers.
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
[2020-12-13 15:35] VITALS: BP 129/84; PULSE 86; RESP 18; TEMP 98.6
== END 2020-12-13 16:47 | DRG 918 ==
LOC: EC 06:02 → 4SSUR 16:59
PROVIDERS: ADMIT Internal Medicine; ATTEND Internal Medicine
DX: T43.222A Poisoning by selective serotonin reuptake inhibitors, intentional self-harm, initial encounter (principal); K50.90 Crohn's disease, unspecified, without complications; T43.622A Poisoning by amphetamines, intentional self-harm, initial encounter; F17.200 Nicotine dependence, unspecified, uncomplicated; D72.829 Elevated white blood cell count, unspecified; F32.9 Major depressive disorder, single episode, unspecified; F41.0 Panic disorder [episodic paroxysmal anxiety]; Z79.899 Other long term (current) drug therapy; Z88.0 Allergy status to penicillin; Z88.5 Allergy status to narcotic agent
CPT/HCPCS: 36415; 80048; 80053; 80143; 80179; 80306; 80320; 81001; 81025; 82075; 83735; 85025; 85027; 87077; 87086; 87186; 93005; 96374; 99285

== ENCOUNTER 2020-12-13 16:49 | Inpatient (IN) | payer BC ==
[2020-12-13] MEDS ORDERED: ACETAMINOPHEN TAB 325 MG TAB PO PRN (16:56)
[2020-12-13] MEDS ORDERED: LORazepam 1 MG TAB PO PRN (16:56)
[2020-12-13] MEDS ORDERED: MAGNESIUM HYDROXIDE 2,400 MG/10 ML CUP PO PRN (16:56)
[2020-12-13] MEDS ORDERED: MAG HYDROX/AL HYDROX/SIMETH 30 ML CUP PO PRN (16:56)
[2020-12-13] MEDS ORDERED: HALOPERIDOL LACTATE 5 MG/ML 1 ML VIAL IM PRN (16:59)
[2020-12-13] MEDS ORDERED: LORazepam 2 MG/ML INJ IM PRN (16:59)
[2020-12-13 18:54] VITALS: RESP 16
[2020-12-14 09:11] LABS: Chol/HDL Ratio 3.48 Ratio; HDL Cholesterol 45.4 mg/dL (40.00-60.00); LDL Cholesterol,Calculated 98.4 mg/dL (0.0-131.0); Triglycerides 70.9 mg/dL (0.00-149.00); VLDL Calculation 14.18 mg/dL (5.00-40.00)
[2020-12-14] MEDS ORDERED: NICOTINE GUM (POLACRILEX) 2 MG GUM BUCCAL PRN (10:10)
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
[2020-12-14] MEDS: DULoxetine HCL 30 MG CAPSULE.DR PO SCH (11:22)
[2020-12-14 12:02] VITALS: BMI 17.9
[2020-12-14] MEDS: MELATONIN 5 MG TABLET PO SCH (22:07)
--- NOTE | 2020-12-15 01:23 | P.CONS ---
History of Present Illness - Reason for Consult Consult date: 12/15/20 - History of Present Illness The patient is a 25-year-old female with a PMH of anxiety, depression, and tobacco abuse who had presented to the emergency room after an intentional overdose with Adderall and sertraline tablets. Patient was admitted to the medicine service due to persistent tachycardia along with the prolonged QTC and poison control's recommendations were followed. The patient was subsequently evaluated by psychiatry and was transferred to the psychiatric unit following medical clearance where she was seen and evaluated earlier today with the mental health unit RN. The patient reported feeling better since her admission. She denied any active physical complaints at the time of interview. She denied experiencing chest discomfort, shortness of breath, fever, chills, cough. Also denied nausea, vomiting, abdominal pain, diarrhea. Review of systems: Pertinent positives and negatives as discussed in HPI, a complete review of systems was performed and all other systems are negative. Physical examination: General: non toxic, no distress, appears at stated age, normal weight Derm: no unusual rashes/lesions no unusual ecchymoses, warm, dry Head: atraumatic, normocephalic, symmetric Eyes: EOMI, no lid lag, anicteric sclera, pupils equal round reactive to light ENT: Nose and ears atraumatic, no thrush, no pharyngeal erythema Neck: No thyromegaly, no cervical lymphadenopathy, trachea midline, supple Mouth: no lip lesion, mucus membranes moist Cardiovascular: S1S2 reg, no murmur, positive posterior tibial pulse bilateral, no edema, capillary refill less than 2 seconds Lungs: CTA bilateral, no rhonchi, no rales , no accessory muscle use Abdominal: soft, nontender to palpation, no guarding, no appreciable organomegaly, normal bowel sounds Ext: no gross muscle atrophy, muscle strength 5 out of 5 in all 4 extremities grossly, no contractures, Neuro: CN II-XI grossly intact, light touch intact all 4 extremities, finger to nose within normal limits, Psych: Alert, oriented, appropriate affect Assessment/plan Tobacco abuse -Nicotine patch as needed -Advised on importance of cessation Depression and suicidal ideation -As per psychiatry Thank you for allowing us to participate in the care of this patient. We will follow peripherally. Do not hesitate to contact us with questions. Someone can be reached from the [facility] hospitalist group at all hours of the day a t [phone]. Past Medical History Additional Past Medical History / Comment(s): anemia, crohn's History of Any Multi-Drug Resistant Organisms: None Reported Past Surgical History: No Surgical Hx Reported Additional Past Surgical History / Comment(s): crohn's disease Past Psychological History: Anxiety, Depression Smoking Status: Current some day smoker Past Alcohol Use History: Daily Past Drug Use History: None Reported - Past Family History Father Family Medical History: Unable to Obtain (Patient refused to answer questions) Medications and Allergies Home Medications Medication Instructions Recorded Confirmed Type Dextroamphetamine/Amphetamine 25 mg PO DAILY 12/11/20 12/14/20 History [Adderall Xr] Methylphenidate HCl [Ritalin] 15 mg PO DAILY@1430 12/11/20 12/14/20 History Sertraline [Zoloft] 150 mg PO DAILY 12/11/20 12/14/20 History Allergies Allergy/AdvReac Type Severity Reaction Status Date / Time codeine Allergy Anaphylaxis Verified 12/14/20 12:35 Penicillins Allergy Rash/Hives Verified 12/14/20 12:35 Physical Exam Vitals: Vital Signs Temp Pulse Resp BP 12/14/20 06:43 97.6 F 91 16 116/68 Intake and Output 12/14/20 12/14/20 12/15/20 14:59 22:59 06:59 Other: Weight 44.5 kg
[2020-12-15] MEDS: DULoxetine HCL 30 MG CAPSULE.DR PO SCH (08:36)
--- NOTE | 2020-12-15 09:31 | P.PN ---
Progress Note - Text Progress Note Date: 12/15/20 Interval History: Patient was seen lying in her bed this morning and was directable and agreeable to speak with writer producer in the office. Patient was more directable today during conversation and answer questions appropriately. She was fairly focused on discharge and wanting to see her and her kids. She asked multiple times she can be discharged today and pleaded with writer producer. She states that her mood is better improving on the medications and was agreeable to have it increased. She states that the melatonin gives her nightmares and refused to take it last night. She states that she slept fairly throughout the night. She claims that she only went to 1 group yesterday however was not able to describe much about what the group was about. She states that she has been showering and eating fairly. At this time patient denies any suicidal or homical ideations, intent or plan. Patient denies any auditory, visual hallucinations and denies any paranoia or delusions. Patient denies any side effects from the medications and has been compliant with meds. Mental Status Exam: General Appearance: Patient appears to be thin, tearful, stated age is alert, evasive at times. Patient appears to have improving hygiene and grooming. Behavior: Patient is seated without any agitated behavior. less Tearful today Speech: Patient's speech is fluent and nonpressured. Mood/Affect: Patient reports their mood is improving, affect is congruent Suicidality/Homicidality: Patient denies having any homicidal ideation intent or plan. Denies any suicidal ideations intent or plan Perceptions: Patient denies any visual hallucinations and denies any auditory hallucinations Though content/process: There is no evidence of any delusional thought content and thought process is linear and goal-directed. Focused on discharge. Memory and concentration: AOX3, grossly intact for the purposes of this session Judgment and insight: improving mildly Assessment Major depressive disorder, recurrent, severe without psychotic features Anxiety disorder unspecified Nicotine dependence PLAN: -Patient is admitted under voluntary status to MHU for stabilization of psychiatric symptoms and safety. Patient has signed adult voluntary form and medication consent and is placed in patient's chart. -Medications : Increased Cymbalta 60 mg daily for mood/anxiety. d/c Melatonin today. -Ativan and Haldol PRN for agitation/aggression -NRT - nicotine gum -SW on board for discharge planning. Encourage patient to participate in groups to work on coping skills. SW to reach out to to ensure safe envt at home and ensure that gun is locked away and prepare for likely discharge tomorrow.
[2020-12-15] MEDS: MELATONIN 5 MG TABLET PO SCH (20:27)
[2020-12-16 07:18] VITALS: BP 126/71; PULSE 67; TEMP 98.5
[2020-12-16] MEDS ORDERED: DULoxetine HCL 60 MG CAPSULE.DR PO SCH (09:00)
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
== END 2020-12-16 10:59 | disposition home or self-care (01) | DRG 885 ==
LOC: 3MHU 16:49
PROVIDERS: ADMIT Psychiatry & Neurology Psychiatry; ATTEND Psychiatry & Neurology Psychiatry
DX: F33.2 Major depressive disorder, recurrent severe without psychotic features (principal); K50.90 Crohn's disease, unspecified, without complications; F17.210 Nicotine dependence, cigarettes, uncomplicated; F41.9 Anxiety disorder, unspecified; G47.00 Insomnia, unspecified; T43.622A Poisoning by amphetamines, intentional self-harm, initial encounter; Z71.6 Tobacco abuse counseling; R00.0 Tachycardia, unspecified; R94.31 Abnormal electrocardiogram [ECG] [EKG]; D64.9 Anemia, unspecified; T14.91XA Suicide attempt, initial encounter; T43.222A Poisoning by selective serotonin reuptake inhibitors, intentional self-harm, initial encounter
CPT/HCPCS: 80061; 83036